=== PATIENT | male | born 1980 | race Two or more races ===

== ENCOUNTER 2019-06-04 11:41 | Emergency (ER) | payer SELFPAY ==
[~2019-06-04] VITALS: Ht 172.7 cm; Wt 104.3 kg
--- NOTE | 2019-06-04 11:46 | NUR ---
JAMIA FROM THE STREET FOR H/A AND NECK AND BACK PAIN; PT AAOX2-3, PT ON MONITOR, VSS, PENDING MD [facility]CCAIN
[2019-06-04] MEDS ORDERED: IV NS 0.9% 1,000 ML BAG IV ONE (12:00)
[2019-06-04 12:18] LABS: BASOPHILS % (AUTO) 0.4 % (0.0-2.0); EOSINOPHILS % (AUTO) 0.5 % (0.0-6.0); HEMATOCRIT 37 % (39-51); HEMOGLOBIN 12.5 g/dL (13.5-17.5); LYMPHOCYTES # (AUTO) 0.6 /CMM (0.8-4.8); LYMPHOCYTES % (AUTO) 13.4 % (20.0-44.0); MEAN CORPUSCULAR HGB CONC 34 g/dl (31.0-36.0); MEAN CORPUSCULAR VOLUME 97 fL (80-96); MONOCYTES # (AUTO) 0.4 /CMM (0.1-1.30); MONOCYTES % (AUTO) 8.3 % (2.0-12.0); NEUTROPHILS # (AUTO) 3.3 /CMM (1.8-8.9); NEUTROPHILS % (AUTO) 77.4 % (43.0-81.0); PLATELET COUNT (AUTO) 108 /CMM (150-450); RED BLOOD CELL COUNT(AUTO) 3.79 MIL/uL (4.5-6.0); WHITE BLOOD COUNT (AUTO) 4.3 K/uL (4.3-11.0)
[2019-06-04 12:25] LABS: CALCIUM, SERUM 8.1 mg/dL (8.5-10.1); CREATININE 0.6 mg/dL (0.6-1.3)
[2019-06-04 12:30] LABS: ALBUMIN 3.1 g/dL (3.4-5.0); BILIRUBIN,DIRECT 0.4 mg/dL (0.0-0.2); BILIRUBIN,TOTAL 1.4 mg/dL (0.2-1.0); TOTAL PROTEIN, SERUM 6.1 g/dL (6.4-8.2)
[2019-06-04] MEDS ORDERED: POTASSIUM CHLORIDE 20 MEQ TAB.PRT.SR PO ONE ×2 (13:00→15:34)
--- NOTE | 2019-06-04 15:38 | NUR ---
PT AROUSABLE, UNABLE TO TAKE POTASSIUM PILLS AT THIS TIME
--- NOTE | 2019-06-04 17:50 | NUR ---
Patient given written and verbal discharge instructions. Patient verbalizes understanding of instructions. Patient is ambulatory with steady gait. Refuses offer of care home placement. Patient given list of available shelters in surrounding area.
[2019-06-04 17:51] VITALS: BP 119/60
== END 2019-06-04 17:52 | disposition home or self-care (01) ==
LOC: ER 11:43
DX: F10.129 Alcohol abuse with intoxication, unspecified (principal); R51 Headache; M54.2 Cervicalgia; M54.6 Pain in thoracic spine; Y00.XXXA Assault by blunt object, initial encounter; Y93.89 Activity, other specified; Y92.89 Other specified places as the place of occurrence of the external cause; Y99.8 Other external cause status; Y90.8 Blood alcohol level of 240 mg/100 ml or more
CPT/HCPCS: 36415; 70450; 72125; 72128; 80048; 80076; 80307; 85025; 99284; J7030; G0480